=== PATIENT | female | born 1950 | race Caucasian/White ===

== ENCOUNTER 2023-10-01 19:37 | Inpatient (IN) | payer MEDICARE, OTHER ==
[~2023-10-01] VITALS: Ht 152.4 cm; Wt 59.0 kg
[2023-10-01 20:26] LABS: BASOPHILS % (AUTO) 0.3 % (0.0-2.0); EOSINOPHILS # (AUTO) 0.1 K/uL (0.0-0.7); EOSINOPHILS % (AUTO) 1.9 % (0.0-6.0); HEMATOCRIT 31 % (33-45); HEMOGLOBIN 10.4 g/dL (11.5-14.8); LYMPHOCYTES % (AUTO) 34.5 % (20.0-44.0); MEAN CORPUSCULAR HEMOGLOBIN 31 PG (26.0-33.0); MEAN CORPUSCULAR HGB CONC 33 g/dl (31.0-36.0); MEAN CORPUSCULAR VOLUME 95 fL (82-100); MONOCYTES # (AUTO) 0.6 K/uL (0.1-1.30); MONOCYTES % (AUTO) 9.6 % (2.0-12.0); NEUTROPHILS # (AUTO) 3.2 K/uL (1.8-8.9); NEUTROPHILS % (AUTO) 53.7 % (43.0-81.0); PLATELET COUNT (AUTO) 242 K/uL (150-450); RED BLOOD CELL COUNT(AUTO) 3.31 MIL/uL (4.0-5.2); RED CELL DISTRIBUTION WIDTH 15.2 % (11.5-15.0); WHITE BLOOD COUNT (AUTO) 5.9 K/uL (4.3-11.0)
[2023-10-01 20:49] LABS: CALCIUM, SERUM 8.9 mg/dL (8.5-10.1); CARBON DIOXIDE 29 mmol/L (21-32); CHLORIDE 104 mmol/L (98-107); CREATININE 0.6 mg/dL (0.6-1.3); GLUCOSE 97 mg/dL (74-106); POTASSIUM 3.9 mmol/L (3.5-5.1); SODIUM SERUM 137 mmol/L (136-145); UREA NITROGEN, BLOOD 23 mg/dL (7-18)
[2023-10-01 20:58] LABS: ALANINE AMINOTRANSFERASE 17 U/L (12-78); ALKALINE PHOSPHATASE 80 U/L (46-116); ASPARTATE AMINOTRANSFERASE 20 U/L (15-37); BILIRUBIN,DIRECT 0.1 mg/dL (0.0-0.2); BILIRUBIN,TOTAL 0.4 mg/dL (0.2-1.0); LIPASE 42 U/L (16-77); TOTAL PROTEIN, SERUM 6.2 g/dL (6.4-8.2)
[2023-10-01] MEDS ORDERED: KETOROLAC TROMETHAMINE 15 MG/ML VIAL IV ONE (21:00)
[2023-10-01] MEDS ORDERED: CEFTRIAXONE 1GM BAG (ER ONLY) 1 GM/50 ML PIGGYBACK IV ONE (22:00)
[2023-10-01] MEDS ORDERED: CEFTRIAXONE 1GM BAG (ER ONLY) 50 ML IV ONE (22:11)
[2023-10-01 22:12] LABS: APPEARANCE,URINE SLIGHTLY CLOUDY (CLEAR); BILIRUBIN,URINE NEGATIVE (NEGATIVE); BLOOD, URINE NEGATIVE Ery/uL (NEGATIVE); COLOR,URINE YELLOW (YELLOW); KETONES,URINE TRACE mg/dL (NEGATIVE); LEUKOCYTE ESTERASE ,URINE TRACE (NEGATIVE); NITRITE, URINE POSITIVE (NEGATIVE); PROTEIN,URINE TRACE mg/dl (NEGATIVE); UGLUCOSE NEGATIVE (NEGATIVE)
[2023-10-01] MEDS ORDERED: OLANZAPINE 10 MG VIAL IM ONE ×2 (22:19→22:30)
[2023-10-01] MEDS ORDERED: SENNOSIDES/DOCUSATE SODIUM 1 TAB TABLET PO PRN (22:30)
[2023-10-01] MEDS ORDERED: MAG HYDROX/AL HYDROX/SIMETH 30 ML UDC PO PRN (22:30)
[2023-10-01] MEDS ORDERED: MAGNESIUM HYDROXIDE 30 ML UDC PO PRN (22:30)
[2023-10-01] MEDS ORDERED: ONDANSETRON HCL/PF 4 MG/2 ML VIAL IVP PRN (22:30)
[2023-10-01] MEDS ORDERED: Z GUARD REMEDY 4 OZ OINT TP PRN (22:30)
[2023-10-01] MEDS ORDERED: ACETAMINOPHEN 325 MG TABLET PO PRN (22:30)
[2023-10-01 22:44] LABS: ADD URINE CULTURE YES; BACTERIA,URINE Many /HPF (None Seen); SQUAMOUS EPITHELIAL CELL,UR Few /HPF (None Seen)
[2023-10-01 23:58] VITALS: BP 149/71; TEMP 97.5; O2SAT 99
[2023-10-02] MEDS ORDERED: ASPI-1169 PO (04:58)
[2023-10-02] MEDS ORDERED: OMEG1CAP PO (04:58)
[2023-10-02] MEDS ORDERED: DONE10TA44 PO (04:58)
[2023-10-02] MEDS ORDERED: METF-440 PO (04:58)
[2023-10-02] MEDS ORDERED: MULT-754 PO (04:58)
[2023-10-02] MEDS ORDERED: CHOL400T11 PO (04:58)
[2023-10-02] MEDS ORDERED: TAMS-12 PO (04:58)
[2023-10-02] MEDS ORDERED: TRAZ-182 PO (04:58)
[2023-10-02] MEDS ORDERED: PIPERACILLIN /TAZOBACTAM 3.375 G in IV D5W 50 ML IV SCH (05:00)
[2023-10-02] MEDS ORDERED: ZOSYN IVPB 3.375 G in IV D5W 50ml IV SCH (05:00)
[2023-10-02 06:38] LABS: BASOPHILS % (AUTO) 0.6 % (0.0-2.0); EOSINOPHILS # (AUTO) 0.1 K/uL (0.0-0.7); EOSINOPHILS % (AUTO) 1.9 % (0.0-6.0); HEMATOCRIT 32 % (33-45); HEMOGLOBIN 10.8 g/dL (11.5-14.8); LYMPHOCYTES # (AUTO) 2.6 K/uL (0.8-4.8); LYMPHOCYTES % (AUTO) 42.7 % (20.0-44.0); MEAN CORPUSCULAR HEMOGLOBIN 32 PG (26.0-33.0); MEAN CORPUSCULAR HGB CONC 33 g/dl (31.0-36.0); MEAN CORPUSCULAR VOLUME 95 fL (82-100); MONOCYTES # (AUTO) 0.5 K/uL (0.1-1.30); NEUTROPHILS # (AUTO) 2.8 K/uL (1.8-8.9); NEUTROPHILS % (AUTO) 45.8 % (43.0-81.0); PLATELET COUNT (AUTO) 247 K/uL (150-450); RED CELL DISTRIBUTION WIDTH 15.2 % (11.5-15.0)
[2023-10-02 06:48] LABS: CALCIUM, SERUM 8.7 mg/dL (8.5-10.1); CARBON DIOXIDE 25 mmol/L (21-32); CHLORIDE 104 mmol/L (98-107); CREATININE 0.5 mg/dL (0.6-1.3); GLUCOSE 74 mg/dL (74-106); MAGNESIUM 1.9 mg/dL (1.8-2.4); PHOSPHORUS 3.2 mg/dL (2.5-4.9); POTASSIUM 3.6 mmol/L (3.5-5.1); SODIUM SERUM 137 mmol/L (136-145); UREA NITROGEN, BLOOD 19 mg/dL (7-18)
[2023-10-02 06:58] LABS: THYROID STIMULATING HORMONE 2.012 uIU/mL (0.358-3.74)
[2023-10-02] MEDS ORDERED: MULT-447 PO (08:05)
[2023-10-02] MEDS ORDERED: MENT113O TP (08:05)
[2023-10-02] MEDS ORDERED: NEOM1OIN15 TP (08:05)
[2023-10-02] MEDS: LACTULOSE 10 G/15 ML UDC (PYXIS) PO SCH (08:18)
[2023-10-02] MEDS: PANTOPRAZOLE 40 MG TABLET.DR PO SCH (08:18)
[2023-10-02] MEDS: DIVALPROEX SODIUM 125 MG CAP.SPRINK PO SCH (12:56)
[2023-10-02] MEDS: THERAHONEY GEL 1.5 OZ TUBE TP SCH (13:06)
[2023-10-02 20:00] VITALS: BP 142/75; TEMP 97.3; O2SAT 98
[2023-10-02] MEDS: IV NS 0.9% 1,000 ML IV PRN (21:20)
[2023-10-02] MEDS ORDERED: CEFTRIAXONE 1 G in IV D5W 50 ML IV SCH (22:00)
[2023-10-02] MEDS: TEMAZEPAM 15 MG CAPSULE PO PRN (22:29)
[2023-10-03] MEDS ORDERED: VANCOMYCIN 1.25 GM in IV D5W 250 ML IV ONE (03:30)
[2023-10-03] MEDS ORDERED: VANCOMYCIN 1 GM /D5W 250 ML PB IV ONE (04:17)
[2023-10-03] MEDS ORDERED: CEFEPIME 2 GM in IV D5W 100 ML IV SCH (05:00)
[2023-10-03] MEDS ORDERED: CEFEPIME 1 GM VIAL ONE (05:45)
[2023-10-03] MEDS: PANTOPRAZOLE 40 MG TABLET.DR PO SCH (07:30)
[2023-10-03 08:00] VITALS: BP 140/63; TEMP 97.2; O2SAT 98
[2023-10-03] MEDS: LACTULOSE 10 G/15 ML UDC (PYXIS) PO SCH (08:11)
[2023-10-03] MEDS: THERAHONEY GEL 1.5 OZ TUBE TP SCH (08:30)
[2023-10-03 09:01] LABS: BASOPHILS % (AUTO) 0.4 % (0.0-2.0); EOSINOPHILS # (AUTO) 0.1 K/uL (0.0-0.7); HEMATOCRIT 29 % (33-45); HEMOGLOBIN 9.8 g/dL (11.5-14.8); LYMPHOCYTES # (AUTO) 2.3 K/uL (0.8-4.8); LYMPHOCYTES % (AUTO) 39.1 % (20.0-44.0); MEAN CORPUSCULAR HEMOGLOBIN 32 PG (26.0-33.0); MEAN CORPUSCULAR HGB CONC 33 g/dl (31.0-36.0); MEAN CORPUSCULAR VOLUME 96 fL (82-100); MONOCYTES # (AUTO) 0.6 K/uL (0.1-1.30); MONOCYTES % (AUTO) 9.9 % (2.0-12.0); NEUTROPHILS # (AUTO) 2.8 K/uL (1.8-8.9); NEUTROPHILS % (AUTO) 48.6 % (43.0-81.0); PLATELET COUNT (AUTO) 243 K/uL (150-450); RED BLOOD CELL COUNT(AUTO) 3.07 MIL/uL (4.0-5.2); RED CELL DISTRIBUTION WIDTH 15.4 % (11.5-15.0); WHITE BLOOD COUNT (AUTO) 5.8 K/uL (4.3-11.0)
[2023-10-03 09:22] LABS: INR 1.08 (0.91-1.10); PARTIAL THROMBOPLASTIN TIME 25.9 SEC (24.3-34.3); PROTHROMBIN TIME 11.4 SECS (9.2-11.1)
[2023-10-03 09:30] LABS: ALANINE AMINOTRANSFERASE 17 U/L (12-78); ALBUMIN 2.8 g/dL (3.4-5.0); ALKALINE PHOSPHATASE 76 U/L (46-116); ASPARTATE AMINOTRANSFERASE 23 U/L (15-37); BILIRUBIN,TOTAL 0.5 mg/dL (0.2-1.0); CALCIUM, SERUM 8.7 mg/dL (8.5-10.1); CARBON DIOXIDE 23 mmol/L (21-32); CHLORIDE 107 mmol/L (98-107); CREATININE 0.5 mg/dL (0.6-1.3); GLUCOSE 91 mg/dL (74-106); POTASSIUM 3.5 mmol/L (3.5-5.1); SODIUM SERUM 137 mmol/L (136-145); TOTAL PROTEIN, SERUM 5.9 g/dL (6.4-8.2); UREA NITROGEN, BLOOD 11 mg/dL (7-18)
[2023-10-03] MEDS: DIVALPROEX SODIUM 125 MG CAP.SPRINK PO SCH (11:58)
[2023-10-03 12:00] VITALS: BP 148/64; TEMP 97.3; O2SAT 97
[2023-10-03] MEDS: IV NS 0.9% 1,000 ML IV PRN (15:31)
[2023-10-03] MEDS: VANCOMYCIN 0.75 GM in IV D5W 250 ML IV SCH (15:34)
[2023-10-03 16:00] VITALS: BP 159/66; TEMP 97.2; O2SAT 100
[2023-10-03] MEDS: CEFEPIME 2 GM in IV D5W 100 ML IV SCH (16:49)
[2023-10-03 20:00] VITALS: BP 167/70; TEMP 98.1; O2SAT 98
[2023-10-03] MEDS: TRAZODONE 50 MG TABLET PO SCH (21:51)
[2023-10-03] MEDS: DONEPEZIL 5 MG TABLET PO SCH (21:51)
[2023-10-04] MEDS: TEMAZEPAM 15 MG CAPSULE PO PRN (00:23)
[2023-10-04] MEDS: VANCOMYCIN 0.75 GM in IV D5W 250 ML IV SCH ×2 (03:19→16:42)
[2023-10-04] MEDS: CEFEPIME 2 GM in IV D5W 100 ML IV SCH ×2 (04:48→16:02)
[2023-10-04 06:29] LABS: CALCIUM, SERUM 8.7 mg/dL (8.5-10.1); CARBON DIOXIDE 24 mmol/L (21-32); CHLORIDE 105 mmol/L (98-107); CREATININE 0.5 mg/dL (0.6-1.3); GLUCOSE 125 mg/dL (74-106); MAGNESIUM 2.1 mg/dL (1.8-2.4); PHOSPHORUS 3.3 mg/dL (2.5-4.9); POTASSIUM 4.1 mmol/L (3.5-5.1); SODIUM SERUM 137 mmol/L (136-145); UREA NITROGEN, BLOOD 8 mg/dL (7-18)
[2023-10-04 07:08] LABS: BASOPHILS % (AUTO) 0.6 % (0.0-2.0); EOSINOPHILS # (AUTO) 0.2 K/uL (0.0-0.7); EOSINOPHILS % (AUTO) 3.4 % (0.0-6.0); HEMATOCRIT 31 % (33-45); HEMOGLOBIN 10.2 g/dL (11.5-14.8); LYMPHOCYTES # (AUTO) 1.6 K/uL (0.8-4.8); LYMPHOCYTES % (AUTO) 28.9 % (20.0-44.0); MEAN CORPUSCULAR HEMOGLOBIN 32 PG (26.0-33.0); MEAN CORPUSCULAR HGB CONC 33 g/dl (31.0-36.0); MEAN CORPUSCULAR VOLUME 96 fL (82-100); MONOCYTES # (AUTO) 0.6 K/uL (0.1-1.30); MONOCYTES % (AUTO) 10.5 % (2.0-12.0); NEUTROPHILS # (AUTO) 3.1 K/uL (1.8-8.9); NEUTROPHILS % (AUTO) 56.6 % (43.0-81.0); PLATELET COUNT (AUTO) 258 K/uL (150-450); RED BLOOD CELL COUNT(AUTO) 3.21 MIL/uL (4.0-5.2); RED CELL DISTRIBUTION WIDTH 15.4 % (11.5-15.0); WHITE BLOOD COUNT (AUTO) 5.5 K/uL (4.3-11.0)
[2023-10-04] MEDS: PANTOPRAZOLE 40 MG TABLET.DR PO SCH (07:30)
[2023-10-04] MEDS: ASPIRIN 81 MG TAB.CHEW PO SCH (08:28)
[2023-10-04] MEDS: LACTULOSE 10 G/15 ML UDC (PYXIS) PO SCH ×2 (08:28→22:00)
[2023-10-04] MEDS: MULTIVIT W/MINERALS 1 TAB TABLET PO SCH (08:29)
[2023-10-04] MEDS: TAMSULOSIN 0.4 MG CAP.SR.24H PO SCH (08:29)
[2023-10-04] MEDS: CHOLECALCIFEROL (VITAMIN D 3) 400 UNIT TABLET PO SCH (08:29)
[2023-10-04] MEDS ORDERED: Medication Not On Formulary EA (Omega-3 Fatty Acids/Fish Oil (Fish Oil 1,000 Mg Capsule) PO SCH (09:00)
[2023-10-04] MEDS: THERAHONEY GEL 1.5 OZ TUBE TP SCH (09:30)
[2023-10-04] MEDS: IV NS 0.9% 1,000 ML IV PRN (10:35)
[2023-10-04] MEDS: DIVALPROEX SODIUM 125 MG CAP.SPRINK PO SCH (11:56)
[2023-10-04] MEDS: BISACODYL SUPP (10 MG) 10 MG/SUPP.RECT SUPP.RECT RC SCH (12:01)
[2023-10-04] MEDS: MUPIROCIN OINT 2% 22 GM TUBE NS SCH ×2 (12:01→21:00)
[2023-10-04 20:00] VITALS: BP 151/73; TEMP 97.2; O2SAT 100
[2023-10-04] MEDS: DONEPEZIL 5 MG TABLET PO SCH (21:01)
[2023-10-04] MEDS: TRAZODONE 50 MG TABLET PO SCH (21:01)
[2023-10-04] MEDS ORDERED: MINERAL OIL 133 ML (PYXIS) 1 EA ENEMA RC ONE (22:00)
[2023-10-05] MEDS: VANCOMYCIN 0.75 GM in IV D5W 250 ML IV SCH (03:18)
[2023-10-05] MEDS: LACTULOSE 10 G/15 ML UDC (PYXIS) PO SCH ×4 (04:00→21:54)
[2023-10-05] MEDS: CEFEPIME 2 GM in IV D5W 100 ML IV SCH (04:25)
[2023-10-05] MEDS ORDERED: MINERAL OIL 133 ML (PYXIS) 1 EA ENEMA RC ONE (04:37)
[2023-10-05 06:35] LABS: BASOPHILS % (AUTO) 0.6 % (0.0-2.0); EOSINOPHILS # (AUTO) 0.2 K/uL (0.0-0.7); EOSINOPHILS % (AUTO) 3.3 % (0.0-6.0); HEMATOCRIT 35 % (33-45); HEMOGLOBIN 11.8 g/dL (11.5-14.8); LYMPHOCYTES # (AUTO) 2.1 K/uL (0.8-4.8); LYMPHOCYTES % (AUTO) 33.5 % (20.0-44.0); MEAN CORPUSCULAR HEMOGLOBIN 33 PG (26.0-33.0); MEAN CORPUSCULAR HGB CONC 34 g/dl (31.0-36.0); MEAN CORPUSCULAR VOLUME 96 fL (82-100); MONOCYTES # (AUTO) 0.6 K/uL (0.1-1.30); MONOCYTES % (AUTO) 9.5 % (2.0-12.0); NEUTROPHILS # (AUTO) 3.3 K/uL (1.8-8.9); NEUTROPHILS % (AUTO) 53.1 % (43.0-81.0); PLATELET COUNT (AUTO) 236 K/uL (150-450); RED CELL DISTRIBUTION WIDTH 15.2 % (11.5-15.0); WHITE BLOOD COUNT (AUTO) 6.1 K/uL (4.3-11.0)
[2023-10-05 07:00] LABS: CARBON DIOXIDE 26 mmol/L (21-32); CHLORIDE 105 mmol/L (98-107); CREATININE 0.5 mg/dL (0.6-1.3); GLUCOSE 126 mg/dL (74-106); MAGNESIUM 2.4 mg/dL (1.8-2.4); PHOSPHORUS 3.3 mg/dL (2.5-4.9); POTASSIUM 3.4 mmol/L (3.5-5.1); SODIUM SERUM 137 mmol/L (136-145); UREA NITROGEN, BLOOD 9 mg/dL (7-18)
[2023-10-05] MEDS: BISACODYL SUPP (10 MG) 10 MG/SUPP.RECT SUPP.RECT RC SCH (09:00)
[2023-10-05] MEDS: MUPIROCIN OINT 2% 22 GM TUBE NS SCH ×2 (09:00→21:00)
[2023-10-05] MEDS ORDERED: POTASSIUM CHLORIDE 20 MEQ TAB.PRT.SR PO SCH (09:30)
[2023-10-05] MEDS: MULTIVIT W/MINERALS 1 TAB TABLET PO SCH (09:50)
[2023-10-05] MEDS: CHOLECALCIFEROL (VITAMIN D 3) 400 UNIT TABLET PO SCH (09:50)
[2023-10-05] MEDS: THERAHONEY GEL 1.5 OZ TUBE TP SCH (09:51)
[2023-10-05] MEDS: ASPIRIN 81 MG TAB.CHEW PO SCH (09:51)
[2023-10-05] MEDS: TAMSULOSIN 0.4 MG CAP.SR.24H PO SCH (09:51)
[2023-10-05] MEDS: PANTOPRAZOLE 40 MG TABLET.DR PO SCH (09:51)
[2023-10-05] MEDS: AMLODIPINE BESYLATE 2.5 MG TABLET PO SCH (10:05)
[2023-10-05] MEDS: DIVALPROEX SODIUM 125 MG CAP.SPRINK PO SCH (12:51)
[2023-10-05] MEDS: CEFTRIAXONE 1 G in IV D5W 50 ML IV SCH (13:54)
[2023-10-05 20:00] VITALS: BP 129/68; TEMP 97.9; O2SAT 98
[2023-10-05] MEDS: TRAZODONE 50 MG TABLET PO SCH (21:55)
[2023-10-05] MEDS: DONEPEZIL 5 MG TABLET PO SCH (21:55)
[2023-10-06] MEDS: TEMAZEPAM 15 MG CAPSULE PO PRN (02:04)
[2023-10-06] MEDS: LACTULOSE 10 G/15 ML UDC (PYXIS) PO SCH ×3 (05:31→16:46)
[2023-10-06 06:57] LABS: ALBUMIN 2.9 g/dL (3.4-5.0); BASOPHILS % (AUTO) 0.6 % (0.0-2.0); BILIRUBIN,TOTAL 0.4 mg/dL (0.2-1.0); CALCIUM, SERUM 9.3 mg/dL (8.5-10.1); CREATININE 0.6 mg/dL (0.6-1.3); EOSINOPHILS # (AUTO) 0.2 K/uL (0.0-0.7); EOSINOPHILS % (AUTO) 2.4 % (0.0-6.0); HEMATOCRIT 32 % (33-45); HEMOGLOBIN 11.1 g/dL (11.5-14.8); LYMPHOCYTES # (AUTO) 2.1 K/uL (0.8-4.8); LYMPHOCYTES % (AUTO) 32.7 % (20.0-44.0); MAGNESIUM 2.4 mg/dL (1.8-2.4); MEAN CORPUSCULAR HEMOGLOBIN 32 PG (26.0-33.0); MEAN CORPUSCULAR HGB CONC 34 g/dl (31.0-36.0); MEAN CORPUSCULAR VOLUME 94 fL (82-100); MONOCYTES # (AUTO) 0.6 K/uL (0.1-1.30); NEUTROPHILS # (AUTO) 3.5 K/uL (1.8-8.9); NEUTROPHILS % (AUTO) 55.3 % (43.0-81.0); PLATELET COUNT (AUTO) 256 K/uL (150-450); POTASSIUM 3.6 mmol/L (3.5-5.1); RED BLOOD CELL COUNT(AUTO) 3.44 MIL/uL (4.0-5.2); RED CELL DISTRIBUTION WIDTH 15.4 % (11.5-15.0); TOTAL PROTEIN, SERUM 6.3 g/dL (6.4-8.2); WHITE BLOOD COUNT (AUTO) 6.4 K/uL (4.3-11.0)
[2023-10-06 07:30] VITALS: BP 141/61; TEMP 98.1; O2SAT 100
[2023-10-06] MEDS ORDERED: MINERAL OIL 133 ML (PYXIS) 1 EA ENEMA RC ONE (09:30)
[2023-10-06] MEDS: MULTIVIT W/MINERALS 1 TAB TABLET PO SCH (09:48)
[2023-10-06] MEDS: TAMSULOSIN 0.4 MG CAP.SR.24H PO SCH (09:48)
[2023-10-06] MEDS: BISACODYL SUPP (10 MG) 10 MG/SUPP.RECT SUPP.RECT RC SCH (09:48)
[2023-10-06] MEDS: PANTOPRAZOLE 40 MG TABLET.DR PO SCH (09:48)
[2023-10-06] MEDS: ASPIRIN 81 MG TAB.CHEW PO SCH (09:48)
[2023-10-06] MEDS: AMLODIPINE BESYLATE 2.5 MG TABLET PO SCH (09:48)
[2023-10-06] MEDS: MUPIROCIN OINT 2% 22 GM TUBE NS SCH (09:51)
[2023-10-06] MEDS: CHOLECALCIFEROL (VITAMIN D 3) 400 UNIT TABLET PO SCH (09:51)
[2023-10-06] MEDS: THERAHONEY GEL 1.5 OZ TUBE TP SCH (09:51)
[2023-10-06 12:08] LABS: INR 1.09 (0.91-1.10); PROTHROMBIN TIME 11.5 SECS (9.2-11.1)
[2023-10-06] MEDS: DIVALPROEX SODIUM 125 MG CAP.SPRINK PO SCH (12:15)
[2023-10-06] MEDS: CEFTRIAXONE 1 G in IV D5W 50 ML IV SCH (12:25)
[2023-10-06 16:00] VITALS: BP 116/74; TEMP 97.3; O2SAT 100
[2023-10-06 20:00] VITALS: BP 100/58; TEMP 97.7; O2SAT 98
[2023-10-07] MEDS: MUPIROCIN OINT 2% 22 GM TUBE NS SCH ×3 (00:17→21:37)
[2023-10-07] MEDS: DONEPEZIL 5 MG TABLET PO SCH ×2 (00:18→21:37)
[2023-10-07] MEDS: HEPARIN SODIUM, PORCINE 5000 UNITS/1 ML VIAL SQ SCH ×3 (00:18→21:40)
[2023-10-07] MEDS: LACTULOSE 10 G/15 ML UDC (PYXIS) PO SCH ×5 (00:19→21:37)
[2023-10-07] MEDS: TRAZODONE 50 MG TABLET PO SCH ×2 (00:19→21:37)
[2023-10-07] MEDS: TEMAZEPAM 15 MG CAPSULE PO PRN (00:42)
[2023-10-07] MEDS: PANTOPRAZOLE 40 MG TABLET.DR PO SCH (08:29)
[2023-10-07] MEDS: TAMSULOSIN 0.4 MG CAP.SR.24H PO SCH (08:29)
[2023-10-07] MEDS: MULTIVIT W/MINERALS 1 TAB TABLET PO SCH (08:31)
[2023-10-07] MEDS: AMLODIPINE BESYLATE 2.5 MG TABLET PO SCH (08:31)
[2023-10-07] MEDS: CHOLECALCIFEROL (VITAMIN D 3) 400 UNIT TABLET PO SCH (08:32)
[2023-10-07] MEDS: BISACODYL SUPP (10 MG) 10 MG/SUPP.RECT SUPP.RECT RC SCH (08:34)
[2023-10-07 09:07] LABS: BASOPHILS % (AUTO) 0.6 % (0.0-2.0); EOSINOPHILS # (AUTO) 0.1 K/uL (0.0-0.7); EOSINOPHILS % (AUTO) 1.8 % (0.0-6.0); HEMATOCRIT 33 % (33-45); HEMOGLOBIN 10.9 g/dL (11.5-14.8); LYMPHOCYTES # (AUTO) 1.8 K/uL (0.8-4.8); MEAN CORPUSCULAR HEMOGLOBIN 32 PG (26.0-33.0); MEAN CORPUSCULAR HGB CONC 33 g/dl (31.0-36.0); MEAN CORPUSCULAR VOLUME 95 fL (82-100); MONOCYTES # (AUTO) 0.4 K/uL (0.1-1.30); MONOCYTES % (AUTO) 7.3 % (2.0-12.0); NEUTROPHILS # (AUTO) 3.7 K/uL (1.8-8.9); NEUTROPHILS % (AUTO) 60.3 % (43.0-81.0); PLATELET COUNT (AUTO) 280 K/uL (150-450); RED BLOOD CELL COUNT(AUTO) 3.48 MIL/uL (4.0-5.2); RED CELL DISTRIBUTION WIDTH 15.5 % (11.5-15.0); WHITE BLOOD COUNT (AUTO) 6.1 K/uL (4.3-11.0)
[2023-10-07 09:33] LABS: CARBON DIOXIDE 31 mmol/L (21-32); CHLORIDE 106 mmol/L (98-107); CREATININE 0.5 mg/dL (0.6-1.3); GLUCOSE 125 mg/dL (74-106); MAGNESIUM 2.3 mg/dL (1.8-2.4); PHOSPHORUS 2.8 mg/dL (2.5-4.9); POTASSIUM 3.5 mmol/L (3.5-5.1); SODIUM SERUM 142 mmol/L (136-145); UREA NITROGEN, BLOOD 20 mg/dL (7-18)
[2023-10-07] MEDS: THERAHONEY GEL 1.5 OZ TUBE TP SCH (10:47)
[2023-10-07] MEDS: DIVALPROEX SODIUM 125 MG CAP.SPRINK PO SCH (13:32)
[2023-10-07] MEDS: CEFTRIAXONE 1 G in IV D5W 50 ML IV SCH (13:46)
[2023-10-07] MEDS ORDERED: ANESTHESIA TRAY IN PYXIS 1 EA TRAY MC ONE (14:20)
[2023-10-07 20:00] VITALS: BP 156/54; TEMP 97.9; O2SAT 91
[2023-10-08] MEDS: TEMAZEPAM 15 MG CAPSULE PO PRN (01:59)
[2023-10-08] MEDS: LACTULOSE 10 G/15 ML UDC (PYXIS) PO SCH ×3 (04:59→15:56)
[2023-10-08 06:31] LABS: BASOPHILS % (AUTO) 0.7 % (0.0-2.0); EOSINOPHILS # (AUTO) 0.1 K/uL (0.0-0.7); EOSINOPHILS % (AUTO) 1.4 % (0.0-6.0); HEMATOCRIT 33 % (33-45); HEMOGLOBIN 11.1 g/dL (11.5-14.8); LYMPHOCYTES # (AUTO) 2.5 K/uL (0.8-4.8); LYMPHOCYTES % (AUTO) 39.8 % (20.0-44.0); MEAN CORPUSCULAR HEMOGLOBIN 31 PG (26.0-33.0); MEAN CORPUSCULAR HGB CONC 34 g/dl (31.0-36.0); MEAN CORPUSCULAR VOLUME 94 fL (82-100); MONOCYTES # (AUTO) 0.5 K/uL (0.1-1.30); NEUTROPHILS # (AUTO) 3.1 K/uL (1.8-8.9); NEUTROPHILS % (AUTO) 50.1 % (43.0-81.0); PLATELET COUNT (AUTO) 287 K/uL (150-450); RED BLOOD CELL COUNT(AUTO) 3.53 MIL/uL (4.0-5.2); RED CELL DISTRIBUTION WIDTH 15.2 % (11.5-15.0); WHITE BLOOD COUNT (AUTO) 6.3 K/uL (4.3-11.0)
[2023-10-08 06:43] LABS: CALCIUM, SERUM 9.6 mg/dL (8.5-10.1); CARBON DIOXIDE 30 mmol/L (21-32); CHLORIDE 105 mmol/L (98-107); CREATININE 0.5 mg/dL (0.6-1.3); GLUCOSE 101 mg/dL (74-106); MAGNESIUM 2.1 mg/dL (1.8-2.4); PHOSPHORUS 3.4 mg/dL (2.5-4.9); POTASSIUM 3.8 mmol/L (3.5-5.1); SODIUM SERUM 142 mmol/L (136-145); UREA NITROGEN, BLOOD 20 mg/dL (7-18)
[2023-10-08] MEDS: MULTIVIT W/MINERALS 1 TAB TABLET PO SCH (09:42)
[2023-10-08] MEDS: CHOLECALCIFEROL (VITAMIN D 3) 400 UNIT TABLET PO SCH (09:42)
[2023-10-08] MEDS: PANTOPRAZOLE 40 MG TABLET.DR PO SCH (09:42)
[2023-10-08] MEDS: TAMSULOSIN 0.4 MG CAP.SR.24H PO SCH (09:42)
[2023-10-08] MEDS: THERAHONEY GEL 1.5 OZ TUBE TP SCH (09:43)
[2023-10-08] MEDS: BISACODYL SUPP (10 MG) 10 MG/SUPP.RECT SUPP.RECT RC SCH (09:43)
[2023-10-08] MEDS: HEPARIN SODIUM, PORCINE 5000 UNITS/1 ML VIAL SQ SCH (09:46)
[2023-10-08] MEDS: MUPIROCIN OINT 2% 22 GM TUBE NS SCH (09:47)
[2023-10-08 09:56] VITALS: BP 153/67
[2023-10-08] MEDS: AMLODIPINE BESYLATE 2.5 MG TABLET PO SCH (09:56)
[2023-10-08] MEDS: DIVALPROEX SODIUM 125 MG CAP.SPRINK PO SCH (12:08)
[2023-10-08] MEDS: CEFTRIAXONE 1 G in IV D5W 50 ML IV SCH (12:17)
[2023-10-08] MEDS ORDERED: CIPR-262 PO (15:10)
[2023-10-08] MEDS ORDERED: DIVA125C2 PO (15:10)
== END 2023-10-08 16:45 | DRG 388 ==
LOC: ER 19:40 → MED 22:39
PROVIDERS: ADMIT Nurse Practitioner Acute Care; ATTEND Nurse Practitioner Acute Care
DX: K56.41 Fecal impaction (principal); G93.41 Metabolic encephalopathy; N39.0 Urinary tract infection, site not specified; F03.911 Unspecified dementia, unspecified severity, with agitation; F03.92 Unspecified dementia, unspecified severity, with psychotic disturbance; F03.918 Unspecified dementia, unspecified severity, with other behavioral disturbance; F05 Delirium due to known physiological condition; K52.89 Other specified noninfective gastroenteritis and colitis; N32.0 Bladder-neck obstruction; D63.8 Anemia in other chronic diseases classified elsewhere; Z20.822 Contact with and (suspected) exposure to COVID-19; I10 Essential (primary) hypertension; E11.9 Type 2 diabetes mellitus without complications; R79.89 Other specified abnormal findings of blood chemistry; F39 Unspecified mood [affective] disorder; B95.2 Enterococcus as the cause of diseases classified elsewhere; S81.811A Laceration without foreign body, right lower leg, initial encounter; X58.XXXA Exposure to other specified factors, initial encounter; Y92.9 Unspecified place or not applicable; Z79.84 Long term (current) use of oral hypoglycemic drugs; Z79.82 Long term (current) use of aspirin; Z79.899 Other long term (current) drug therapy
CPT/HCPCS: 36415; 71045-TC; 80048-TC; 80053-TC; 80076-TC; 80202-TC; 81001; 83690-TC; 83735-TC; 84100-TC; 84443-TC; 84484-TC; 85025-TC; 85610-TC; 85730-TC; 87081-TC; 87086-TC; A4223; G0378; J0692; J0696; J1644; J1885; J2543; J2704; J3370; J3490; J7030; J7050; J7060